=== PATIENT | male | born 1995 | race Caucasian/White ===

== ENCOUNTER 2016-05-29 04:30 | Emergency (ER) | payer OTHER ==
[2016-05-29 04:49] VITALS: TEMP 97.8
[2016-05-29] MEDS ORDERED: Lidocaine 2% Inj (20ml) INFIL ONE (05:28)
[2016-05-29] MEDS ORDERED: Lidocaine 2% Inj (20ml) ONE (05:28)
--- NOTE | 2016-05-29 05:29 | C.PDOC ---
History Of Present Illness 20 yo male come in for evaluation of left facial contusion, laceration to lip sustained [employer] DISPOSITION " after led and fell on ice". Pt denies LOc, syncope, headache. dizziness, visual changes, focal deficits, drooling, trismus, toothache, neck pain or any other active complaints. Mild alcohol odor noted, pt admits, drinking little today". AAO#3, not in any apparent distress. - HPI Time Seen by Provider: 05/29/16 05:01 Chief Complaint (Nursing): Trauma Past Medical History Reviewed: Historical Data, Nursing Documentation, Vital Signs Vital Signs: Last Vital Signs Temp 97.8 F 05/29/16 04:48 Pulse 94 H 05/29/16 04:48 Resp 16 05/29/16 04:48 BP 129/77 05/29/16 04:48 Pulse Ox 97 05/29/16 05:31 - Medical History PMH: No Chronic Diseases Surgical History: No Surg Hx Family History: States: No Known Family Hx - Social History Hx Tobacco Use: No Hx Alcohol Use: Yes Hx Substance Use: No - Immunization History Hx Tetanus Toxoid Vaccination: No Hx Influenza Vaccination: No Hx Pneumococcal Vaccination: No Review Of Systems Except As Marked, All Systems Reviewed And Found Negative. Constitutional: Negative for: Fever, Chills Eyes: Negative for: Vision Change ENT: Positive for: Mouth Pain, Mouth Swelling. Negative for: Ear Discharge, Nose Discharge, Throat Pain Respiratory: Negative for: Shortness of Breath Gastrointestinal: Negative for: Vomiting Genitourinary: Negative for: Incontinence Musculoskeletal: Negative for: Neck Pain, Back Pain Skin: Positive for: Lesions. Negative for: Bruising Neurological: Negative for: Weakness, Numbness, Altered Mental Status, Headache , Dizziness Physical Exam - Physical Exam Appears: Well, Non-toxic, No Acute Distress Skin: Normal Color, Warm, Dry Head: Atraumatic, Normacephalic Eye(s): bilateral: Normal Inspection, PERRL, EOMI Ear(s): Bilateral: Normal Nose: Normal, No Discharge Oral Mucosa: Moist, No Drooling, No Trismus, Other (Laceration to left mouth corner, inner lip 4cm length, mild bloody oozing. No wound FB.) Tongue: Normal Appearing, Other ((+) alcohol odor) Lips: Normal Appearing Teeth: Normal Dentition, No Loose Gingiva: Normal Appearing Throat: Normal, No Erythema, No Exudate, No Drooling Neck: Normal, Normal ROM, No Midline Cervical Tenderness, No Paracervical Tenderness, Supple Chest: Symmetrical, No Deformity Cardiovascular: Rhythm Regular Respiratory: Normal Breath Sounds Gastrointestinal/Abdominal: Normal Exam Back: Normal Inspection, No Vertebral Tenderness Extremity: Normal ROM, No Tenderness, No Deformity Neurological/Psych: Oriented x3, Normal Speech ED Course And Treatment O2 Sat by Pulse Oximetry: 97 Pulse Ox Interpretation: Normal - Other Rad Mandible xray X-Ray: Interpreted by Me, Viewed By Me Interpretation: no acute fx Progress Note: On re-eavluation, pt is afebrile, hemodynamicaly stable. non- toxic. Ambulatoyr in ED with stable gait. AAO#3. head: AT/NC. ENT: (+) intraoral laceration reapired w/sutures. No drooling or trismus. neck: (-) midline tenderness. FAROM of B/L UEs and LEs. Neurologicaly intact. Xray review and appears noraml. Pt advised OBS 48 hrs for any sign of hea dinjury- return if any new hcanges. Advised on suture care. ref. to F/u with PMD, Dentist and ENT for re-eval. Laceration - Laceration Repair inner lip Wound Length (In cm): 4cm Description Of Wound: Linear Wound Cleansed With: Sterile Saline Anesthesia: Lidocaine 2% Wound Examination: Irrigated With Saline, No FB With Wound Exploration Wound Closure: Suture (#5) Suture Technique And Material Used: Interrupted, Chromic (4-0) Wound Complexity: Simple Disposition Counseled Patient/Family Regarding: Studies Performed, Diagnosis, Need For Followup, Rx Given - Disposition Referrals: Sudhakar Zacarias MD [Staff Provider] - Disposition: HOME/ ROUTINE Disposition Time: 06:05 Condition: STABLE Additional Instructions: Take medication as prescribed Tylenol or Ibuprofen as need for pain Avoid hot/spicy food for 2-3 days. Cool/cold diet Sutures absorbable, although can be removed in 5-7 days if uncomfortable. Observe 48 hours for any sign of head injury-intractable headache, vomiting, visual changes, or any other changes-return to ED immediately for revelautaion. Follow up with PMD, ENT and Dentist in 2-3 days for re-evaluation as need. Prescriptions: Amoxicillin/Clavulanate [Augmentin 875 MG-125 MG] 1 tab PO BID #14 tab Instructions: Care For Your Absorbable Stitches (ED), Facial Laceration (ED), Facial Contusion (ED), Head Injury (ED) - Clinical Impression Clinical Impression: Head injury, Facial contusion, Lip laceration
[2016-05-29 06:31] VITALS: BP 128/74; PULSE 70; RESP 20; O2SAT 100
--- NOTE | 2016-05-29 09:32 | RAD ---
PROCEDURE: Mandible 05/29/2016 HISTORY: injury COMPARISON: No prior study available comparison. TECHNIQUE: Four views of the mandible performed. FINDINGS: Current study reveals no evidence displaced fracture nor dislocation. The osseous structures appear grossly intact so far as can be seen if symptoms persist or occult fracture suspected clinically recommend followup CT scan which is much more sensitive for detecting subtle mandibular or other maxillofacial skeletal fractures that may not be readily apparent on plain film imaging. IMPRESSION: No fracture seen. Consider followup CT scan further evaluation as above
== END 2016-05-29 06:29 | disposition home or self-care (01) ==
LOC: C.ER 04:30
DX: S01.511A Laceration without foreign body of lip, initial encounter (principal); W00.0XXA Fall on same level due to ice and snow, initial encounter; Y93.9 Activity, unspecified; Y92.410 Unspecified street and highway as the place of occurrence of the external cause

== ENCOUNTER 2016-08-10 02:10 | Emergency (ER) | payer OTHER ==
[2016-08-10 02:21] VITALS: BP 139/75; PULSE 86; RESP 18; TEMP 98.3; O2SAT 98
[2016-08-10] MEDS ORDERED: Bacitracin 500 Units/gm Oint Foilpak UD ONE (02:27)
--- NOTE | 2016-08-10 02:28 | C.PDOC ---
History Of Present Illness 20 y.o male presents to ED for evaluation after pitbull jumped on him and felt pain to his upper back that occurred [employer]PING [employer]CEIVING [employer]. He states the dog bit him. The dog is up to date with Rabies vaccine, as per lead military analyst. Patient denies any other complaints. Time Seen by Provider: 08/10/16 02:22 Chief Complaint (Nursing): Bite History Per: Patient History/Exam Limitations: no limitations Onset/Duration Of Symptoms: Hrs Current Symptoms Are (Timing): Still Present Severity: Mild Recent travel outside of the [place] States: No Additional History Per: Patient - Animal Bite Description Of The Attack: Other (Walking and dog jumped on him and bit him) Description Of The Animal: Other (Pedestrian pet) Reports Animal Appears: Unknown Reports Animal's Immunization Status: UTD Past Medical History Reviewed: Historical Data, Nursing Documentation, Vital Signs Vital Signs: Last Vital Signs Temp 98.3 F 08/10/16 02:18 Pulse 86 08/10/16 02:18 Resp 18 08/10/16 02:18 BP 139/75 08/10/16 02:18 Pulse Ox 98 08/10/16 02:41 - Medical History PMH: No Chronic Diseases Surgical History: No Surg Hx Family History: States: Unknown Family Hx - Social History Hx Tobacco Use: No Hx Alcohol Use: Yes Hx Substance Use: No - Immunization History Hx Tetanus Toxoid Vaccination: No Hx Influenza Vaccination: No Hx Pneumococcal Vaccination: No Review Of Systems Except As Marked, All Systems Reviewed And Found Negative. Constitutional: Negative for: Fever, Chills Gastrointestinal: Negative for: Nausea, Vomiting Musculoskeletal: Positive for: Back Pain (Upper back pain) Skin: Negative for: Rash Physical Exam - Physical Exam Appears: Non-toxic, No Acute Distress Skin: Warm, Dry Head: Atraumatic, Normacephalic Eye(s): bilateral: Normal Inspection Neck: Normal ROM Chest: Symmetrical Back: No Vertebral Tenderness, No Paraspinal Tenderness, Other (2 linear markings and abrasions to the left upper back, no bite or punture wound, no bleeding.) Extremity: Bilateral: Atraumatic, Normal Color And Temperature, Normal ROM Neurological/Psych: Oriented x3, Normal Speech ED Course And Treatment O2 Sat by Pulse Oximetry: 98 (RA) Pulse Ox Interpretation: Normal Medical Decision Making Medical Decision Making: Impression: 20 y/o male c/o upper back pain from a dog jumping on him Plans: -Tetanus -Reassess Wound inspected and appears linear markings and abrasion, no bite or puncture wound, no bleeding. Tetanus administered. Bacitracin applied Patient is in no acute distress at this time. Patient was advised to follow up with PMD within 1-2 if symptoms persists. Disposition Counseled Patient/Family Regarding: Diagnosis, Need For Followup - Disposition Referrals: Non [facility] Provider, [Primary Care Provider] - Disposition: HOME/ ROUTINE Disposition Time: 02:25 Condition: STABLE Additional Instructions: Keep area clean and dry. May apply bacitracin to area Instructions: Abrasion (ED) - POA Present On Arrival: None - Clinical Impression Clinical Impression: Abrasion of back - Scribe Statement The provider has reviewed the documentation as recorded by the Scribe Kai cordova All medical record entries made by the Scribe were at my direction and personally dictated by me. I have reviewed the chart and agree that the record accurately reflects my personal performance of the history, physical exam, medical decision making, and the department course for this patient. I have also personally directed, reviewed, and agree with the discharge instructions and disposition.
== END 2016-08-10 02:43 | disposition home or self-care (01) ==
LOC: SUPCPDRO 02:10 → C.ER 02:10
DX: S20.412A Abrasion of left back wall of thorax, initial encounter (principal); W54.0XXA Bitten by dog, initial encounter; Y92.410 Unspecified street and highway as the place of occurrence of the external cause

== ENCOUNTER → 2017-03-28 22:53 | Emergency (ER) | payer OTHER | END | disposition left against medical advice (07) | LOC: C.ER 22:53 | DX: Z02.89 Encounter for other administrative examinations (principal); H92.09 Otalgia, unspecified ear ==